=== PATIENT | female | born 1975 | race Two or more races ===

== ENCOUNTER 2016-04-14 06:46 | Day surgery (SDC) | payer MEDICARE, OTHER ==
[2016-04-14] MEDS ORDERED: METHYLPREDNISOLONE ACETATE INJ 80 MG/1 ML VIAL INJ PRN (07:30)
[2016-04-14] MEDS ORDERED: MIDAZOLAM HCL INJ 5 MG/1 ML VIAL ONE (08:18)
[2016-04-14] MEDS ORDERED: FENTANYL CITRATE INJ/PF 100 MCG/2 ML AMPUL ONE (08:19)
[2016-04-14] MEDS ORDERED: SODIUM BICARBONATE 8.4% INJ 50 MEQ/50 ML DISP.SYRIN ONE (08:19)
[2016-04-14] MEDS ORDERED: TRIAMCINOLONE ACETONIDE INJ 40 MG/1 ML VIAL INJ PRN (08:28)
--- NOTE | 2016-04-14 09:20 | OPERATIVE REPORT E ---
Operative Report NAME: ALEX ROUSE : 1975 AGE: 40Y DATE OF SURGERY: 04/14/2016 ROOM: PREOPERATIVE DIAGNOSIS: Lumbar radiculopathy. POSTOPERATIVE DIAGNOSIS: Lumbar radiculopathy. OPERATION: Lumbar epidural steroid injection, translaminar at L4-L5. SURGEON: ELIAZAR JIMENEZ M.D. ANESTHESIA: MAC using 3 mg of Versed and 100 mcg of Fentanyl. COMPLICATIONS: None. PROCEDURE IN DETAIL: After obtaining informed consent and advising the patient of the risks and benefits, including serious neurological injury, bleeding and infection, allergic reaction, and , she was taken to the procedure room. She was placed comfortably in a prone position. Confirmation was assessed visually and verbally. She was then prepped with chlorhexidine with suitable dry time prior to draping. The site was marked at the L4-L5 intersection and the patient was sterilely draped. The skin was anesthetized with 1% lidocaine with bicarb. Using a 17-gauge Tuohy needle, it was advanced to the anesthetized area using intermittent AP and lateral fluoroscopy to confirm depth, and using xupa-id-ybmaghsrnz technique at 9 cm the epidural space was found. Then, 0.5 mL of Omnipaque contrast was injected with appropriate epidurogram in the lateral and AP viewing. Images were saved. The needle was removed and noted prior to injection and needle removal negative aspiration for heme or CSF. An injection mixture of 80 mg of Kenalog and 3 mL of normal saline was injected and the needle was removed. The area was cleansed and a dressing was placed, and the patient was taken to the PACU for further postoperative care and monitoring. There was 30 mg of IV Toradol written for p.r.n. headache which she also received after Fentanyl administration. She will follow up in our office as planned. DICTATING PHYSICIAN: ELIAZAR JIMENEZ M.D. [id number] PHY#: [id number] ID: [id number] JOB#: [id number] ACCT: [id number] cc:ELIAZAR JIMENEZ M.D. >
[2016-04-14] MEDS ORDERED: KETOROLAC TROMETHAMINE INJ/PF 30 MG/1 ML SDV ONE (09:34)
[2016-04-14 10:35] VITALS: BP 102/68
== END 2016-04-14 10:30 | disposition home or self-care (01) ==
LOC: CCL 06:46
PROVIDERS: ATTEND Student in an Organized Health Care Education/Training Program
PROC: 3E0U33Z Introduction of Anti-inflammatory into Joints, Percutaneous Approach (ICD-10-PCS; principal; 2016-04-14)
DX: M54.17 Radiculopathy, lumbosacral region (principal); E03.9 Hypothyroidism, unspecified; M19.90 Unspecified osteoarthritis, unspecified site; K21.9 Gastro-esophageal reflux disease without esophagitis; M79.1 Myalgia; M51.27 Other intervertebral disc displacement, lumbosacral region; M51.24 Other intervertebral disc displacement, thoracic region; G89.4 Chronic pain syndrome; M51.36 Other intervertebral disc degeneration, lumbar region; M47.897 Other spondylosis, lumbosacral region; F43.10 Post-traumatic stress disorder, unspecified; Z79.899 Other long term (current) drug therapy; Z79.84 Long term (current) use of oral hypoglycemic drugs; Z86.73 Personal history of transient ischemic attack (TIA), and cerebral infarction without residual deficits
CPT/HCPCS: 77003; 62322; Q9966; J3010; J1885; J3490 ×3; J1040

== ENCOUNTER 2016-06-03 08:46 | Day surgery (SDC) | payer MEDICARE, OTHER ==
[~2016-06-03 08:46] MED LIST: FENTANYL CITRATE INJ/PF 100 MCG/2 ML AMPUL INJ PRN; MIDAZOLAM HCL INJ 5 MG/1 ML VIAL INJ PRN; TRIAMCINOLONE ACETONIDE INJ 40 MG/1 ML VIAL INJ PRN
[2016-06-03] MEDS ORDERED: MIDAZOLAM HCL INJ 5 MG/1 ML VIAL ONE (10:08)
[2016-06-03] MEDS ORDERED: FENTANYL CITRATE INJ/PF 100 MCG/2 ML AMPUL ONE (10:09)
[2016-06-03] MEDS ORDERED: SODIUM BICARBONATE 8.4% INJ 50 MEQ/50 ML DISP.SYRIN ONE (10:12)
[2016-06-03] MEDS ORDERED: KETOROLAC TROMETHAMINE INJ/PF 30 MG/1 ML SDV ONE (11:16)
[2016-06-03] MEDS ORDERED: ONDANSETRON HCL INJ/PF 4 MG/2 ML SDV ONE (11:43)
[2016-06-03 13:23] VITALS: BP 109/69
--- NOTE | 2016-06-03 13:48 | OPERATIVE REPORT E ---
Operative Report NAME: ALEX ROUSE : 1975 AGE: 40Y DATE OF SURGERY: 06/03/2016 ROOM: PREOPERATIVE DIAGNOSIS: Lumbar radiculopathy. POSTOPERATIVE DIAGNOSIS: Lumbar radiculopathy. OPERATION: Transforaminal lumbar epidural steroid injection at L4-L5 right paramedian approach. SURGEON: ELIAZAR JIMENEZ M.D. ANESTHESIA: MAC using 3 mg of versed and 50 mcg of fentanyl. COMPLICATIONS: None. PROCEDURE IN DETAIL: After obtaining informed consent and advising the patient of the risks and benefits, including serious neurological injury, bleeding and infection, allergic reaction and , she was taken to the procedure room. She was placed comfortably in a prone position. Confirmation was assessed visually and verbally. She was then prepped with chlorhexidine with a suitable drying time prior to draping. Site was marked at the L4-L5 intersection and the patient was sterilely draped. The skin was anesthetized with 1% lidocaine with bicarb. Using an 17-gauge Tuohy needle, it was advanced through the anesthetized area using intermittent AP and lateral fluoroscopy to confirm depth and using mgyh-ee-qnpnvrpmqk technique at 8 cm the epidural space was found. Then 1 mL of Omnipaque contrast was injected with appropriate epidural and AP viewing. Images were saved. The needle was removed negative for aspiration for heme or CSF. An injection mixture of 80 mg of Kenalog and was injected. The needle was removed. The area was cleansed and a dressing was placed. The patient was taken to the PACU for further postoperative care and monitoring. Given 30 mg of IV for p.r.n. headache, which she has received after fentanyl administration. She will follow up in the office as planned. DICTATING PHYSICIAN: ELIAZAR JIMENEZ M.D. [id number] PHY#: [id number] ID: [id number] JOB#: [id number] ACCT: [id number] cc:ELIAZAR JIMENEZ M.D. >
== END 2016-06-03 12:25 | disposition home or self-care (01) ==
LOC: CCL 08:46
PROVIDERS: ATTEND Student in an Organized Health Care Education/Training Program
PROC: 3E0U33Z Introduction of Anti-inflammatory into Joints, Percutaneous Approach (ICD-10-PCS; principal; 2016-06-03)
DX: M54.17 Radiculopathy, lumbosacral region (principal); E03.9 Hypothyroidism, unspecified; M19.90 Unspecified osteoarthritis, unspecified site; M79.1 Myalgia; G89.4 Chronic pain syndrome; M47.897 Other spondylosis, lumbosacral region; M51.27 Other intervertebral disc displacement, lumbosacral region; M51.36 Other intervertebral disc degeneration, lumbar region; M54.16 Radiculopathy, lumbar region; F32.9 Major depressive disorder, single episode, unspecified; G43.909 Migraine, unspecified, not intractable, without status migrainosus; E23.0 Hypopituitarism; F41.9 Anxiety disorder, unspecified; K21.9 Gastro-esophageal reflux disease without esophagitis; Z86.73 Personal history of transient ischemic attack (TIA), and cerebral infarction without residual deficits; Z79.899 Other long term (current) drug therapy; Z85.43 Personal history of malignant neoplasm of ovary
CPT/HCPCS: 62322; 77001; Q9966; J3010; J1885; J3490 ×3; J2405

== ENCOUNTER 2016-08-11 06:13 | Day surgery (SDC) | payer MEDICARE, OTHER ==
[~2016-08-11 06:13] MED LIST changes: -FENTANYL CITRATE INJ/PF 100 MCG/2 ML AMPUL INJ PRN; +FENTANYL CITRATE INJ/PF 100 MCG/2 ML AMPUL IV PRN; -MIDAZOLAM HCL INJ 5 MG/1 ML VIAL INJ PRN; +MIDAZOLAM HCL INJ 5 MG/1 ML VIAL IV PRN
[2016-08-11] MEDS ORDERED: MIDAZOLAM HCL INJ 5 MG/1 ML VIAL ONE (08:08)
[2016-08-11] MEDS ORDERED: FENTANYL CITRATE INJ/PF 100 MCG/2 ML AMPUL ONE (08:09)
[2016-08-11] MEDS ORDERED: SODIUM BICARBONATE 8.4% INJ 50 MEQ/50 ML DISP.SYRIN ONE (08:11)
[2016-08-11] MEDS ORDERED: TRIAMCINOLONE ACETONIDE INJ 40 MG/1 ML VIAL INJ ONE (08:30)
[2016-08-11] MEDS ORDERED: KETOROLAC TROMETHAMINE INJ/PF 30 MG/1 ML SDV ONE (08:53)
[2016-08-11 11:12] VITALS: BP 106/76
--- NOTE | 2016-08-11 14:48 | OPERATIVE REPORT E ---
Operative Report NAME: ALEX ROUSE : 1975 AGE: 40Y DATE OF SURGERY: 08/11/2016 ROOM: PREOPERATIVE DIAGNOSIS: LUMBAR RADICULOPATHY. POSTOPERATIVE DIAGNOSIS: LUMBAR RADICULOPATHY. OPERATION: Translaminar epidural steroid injection at L4-L5, midline approach. SURGEON: ELIAZAR JIMENEZ M.D. ANESTHESIA: MAC using 3.5 mg of Versed and 100 mcg of fentanyl. COMPLICATIONS: None. PROCEDURE IN DETAIL: After obtaining informed consent and advising the patient of the risks and benefits including serious neurological injury, bleeding, infection allergic reaction and , she was taken to the procedure room. She was placed comfortably in a prone position. Confirmation was assessed visually and verbally. She was then prepped with chlorhexidine with a suitable drying time prior to draping. The site was marked at the L4-L5 interspace and the patient was sterilely draped. The skin was anesthetized with 1% lidocaine with bicarb. Using a 17-gauge Tuohy needle, it was advanced through the anesthetized area using intermittent AP and lateral fluoroscopy to confirm depth and then using kcyk-vr-vvnqrxdfli technique at 8 cm, the epidural space was found and 1 mL of Omnipaque contrast injection with appropriate epidurogram. Images were saved. After negative aspiration for heme or CSF, a mixture of 80 mg of Kenalog and 4 mg of normal saline preservative free was injected. The needle was then removed. The area was cleansed and a dressing was placed. The patient was taken to the PACU for postoperative care and monitoring. An order was given for 30 mg of IV Toradol for p.r.n. headache postprocedure sedation medications which she has received after fentanyl administration in the past. She will follow up in the office as planned. DICTATING PHYSICIAN: ELIAZAR JIMENEZ M.D. [id number] PHY#: [id number] ID: [id number] JOB#: [id number] ACCT: [id number] cc:ELIAZAR JIMENEZ M.D. >
== END 2016-08-11 09:35 | disposition home or self-care (01) ==
LOC: CCL 06:13
PROVIDERS: ATTEND Student in an Organized Health Care Education/Training Program
PROC: 3E0S33Z Introduction of Anti-inflammatory into Epidural Space, Percutaneous Approach (ICD-10-PCS; principal; 2016-08-11)
DX: M54.17 Radiculopathy, lumbosacral region (principal); Z86.73 Personal history of transient ischemic attack (TIA), and cerebral infarction without residual deficits; E03.9 Hypothyroidism, unspecified; M19.90 Unspecified osteoarthritis, unspecified site; Z87.891 Personal history of nicotine dependence; M51.27 Other intervertebral disc displacement, lumbosacral region; M79.1 Myalgia; M54.16 Radiculopathy, lumbar region; M51.24 Other intervertebral disc displacement, thoracic region; M47.897 Other spondylosis, lumbosacral region; G89.4 Chronic pain syndrome; M51.36 Other intervertebral disc degeneration, lumbar region
CPT/HCPCS: 77003; 62322; Q9966; J3010; J1885; J3490 ×3